=== PATIENT | female | born 1990 | race Caucasian/White ===

== ENCOUNTER 2025-05-14 18:25 | Emergency (ER) | payer MEDICAID, SELFPAY ==
[2025-05-14 18:28] VITALS: BP 125/88; PULSE 99; RESP 18; TEMP 36.4; O2SAT 100; BMI 19.1
--- NOTE | 2025-05-14 18:57 | EKG12_ITS ---
Test Reason : N/V Blood Pressure : */* mmHG Vent. Rate : 77 BPM Atrial Rate : 77 BPM P-R Int : 156 ms QRS Dur : 88 ms QT Int : 406 ms P-R-T Axes : 67 77 37 degrees QTcB Int : 459 ms Normal sinus rhythm Normal ECG Confirmed by Jovani Nelson ([id number]), editor publications NATHAN KOEHLER ([id number]) on 05/17/2025 11:49:41 AM Referred By: Confirmed By: Jovani Nelson
--- NOTE | 2025-05-14 18:58 | EX.ED.DYSGE1 ---
HPI History of Present Illness Chief Complaint: Nausea/Vomiting Informant: patient and spouse/S.O. Narrative Narrative: 6 vomiting multiple episodes 2 hours prior to arrival. States he feels like she is going to pass out. Issues previously however not severe per patient. Pursuing other recent known symptoms and ovarian cyst however denies any pelvic pain. Denies alcohol admits to marijuana use however states not much did use today small amount. Last menstrual period on the . No urinary symptoms. Multiple allergies reviewed. Prior similar symptoms: Yes PFSH PFSH Home Medications ?Medication ?Instructions ?Recorded ?Last Taken ?Type ondansetron 4 mg disintegrating 4 mg PO Q8H PRN PRN Nausea #10 tabs 05/14/25 Unknown Rx tablet Allergy/AdvReac Type Severity Reaction Status Date / Time amoxicillin Allergy Intermediate PT UNABLE Verified 05/14/25 18:28 TO RESPOND-NEEDS F/U acetaminophen (From Percocet) Allergy Mild PT UNABLE Verified 05/14/25 18:28 TO RESPOND-NEEDS F/U oxycodone (From Percocet) Allergy Mild PT UNABLE Verified 05/14/25 18:28 TO RESPOND-NEEDS F/U pseudoephedrine (From Allergy Mild PT UNABLE Verified 05/14/25 18:28 Sudafed) TO RESPOND-NEEDS F/U sulfamethoxazole (From Allergy PT UNABLE Verified 05/14/25 18:28 Bactrim) TO RESPOND-NEEDS F/U trimethoprim (From Bactrim) Allergy PT UNABLE Verified 05/14/25 18:28 TO RESPOND-NEEDS F/U Social History Smoking Status: Never smoker ROS ROS ED Constitutional Constitutional ED: Denies fever(s) Cardiovascular Cardiovascular: Reports other Details: Lightheaded symptoms ; Denies chest pain Respiratory/Chest Respiratory/Chest: Denies cough Gastrointestinal Gastrointestinal: Reports nausea and vomiting; Denies diarrhea Musculoskeletal Musculoskeletal: Denies none Integumentary Denies rash or wounds Neurologic Neurologic: Denies weakness EXAM Physical Exam Const Vital Signs: 05/14/25 18:28 05/14/25 20:20 Temperature 97.6 F L 98 F Temperature Source Temporal Pulse Rate 99 71 Respiratory Rate 18 18 Blood Pressure 125/88 H 113/78 Blood Pressure Mean 100 89 Pulse Ox 100 99 Oxygen Delivery Method Room Air Constitutional Narrative: Thin female actively retching during examination. No hematemesis. HEENT normocephalic and atraumatic Eyes General Eye ED: Yes normal appearance of both eyes Neck full ROM Resp normal respiratory effort and normal air movement Cardio regular rate and regular rhythm GI soft to palpation Extremity normal to inspection and full ROM Neuro oriented x3 Skin no rashes or lesions noted and no wounds MDM MDM MDM Narrative Medical decision making narrative: Interventions / MDM: Differential diagnosis: Cyclic vomiting, history of marijuana use, near syncope Diagnosis considered but do not suspect: No pelvic pain for concerns for torsion at this time reported history of ovarian cyst of 7 cm. My EKG interpretation: Sinus rate of 77, no ST changes. QTc 459. Imaging independently reviewed and interpreted by myself: N/A External documents reviewed: N/A Test considered but not ordered:N/A ED course: Patient retching in the room. Nontoxic soft abdomen. IV established for labs. Will use cyclic vomiting order set for medications Ativan Pepcid and Zofran. IV fluids given. EKG ordered with lightheaded symptoms. 2010: EKG normal labs are normal. Electrolytes lipase are normal. Clinically feeling better on reevaluation. Tolerate oral fluids. Prescription for Zofran at home to use. Discussed refraining from marijuana use. She is given follow-up with GI. She will continue oral fluid hydration at home. All questions were answered. Re-evaluation: stable Disposition discussed with patient/family/significant other: Patient and significant other Case discussed with consulting clinician: N/A This note was generated with [email or web address] dictation software. It may contain incorrect words, spelling, and punctuation that were not noted in checking the note before signing. Lab Data Attestation: I reviewed the patient's lab results. Labs: Laboratory Results - last 24 hr 05/14/25 19:10 WBC 11.3 H RBC 4.40 Hgb 13.4 Hct 39.0 MCV 88.6 MCH 30.5 MCHC 34.4 RDW Std Deviation 39.6 RDW Coeff of Elena 12.3 Plt Count 224 MPV 11.4 Immature Gran % (Auto) 0.400 Neut % (Auto) 85.1 H Lymph % (Auto) 10.3 L Scurry % (Auto) 3.7 Eos % (Auto) 0.3 Baso % (Auto) 0.2 Absolute Neuts (auto) 9.6 H Absolute Lymphs (auto) 1.16 Nucleated RBC % 0 Sodium 137 Potassium 3.8 Chloride 105 Carbon Dioxide 16.1 L Anion Gap 15 BUN 12 Creatinine 0.76 Estim Creat Clear Calc 79.90 Est GFR (MDRD) Non-Af 104 BUN/Creatinine Ratio 16.1 Glucose 151 H Calcium 9.2 Total Bilirubin 0.85 AST 24 ALT 26 Alkaline Phosphatase 82 Total Protein 7.5 Albumin 4.2 Globulin 3.2 Albumin/Globulin Ratio 1.3 Lipase 29 Serum , Qual NEGATIVE Discharge Plan Triage Chief Complaint: Nausea/Vomiting ED Provider: Casper Whittaker Dx/Rx/DC Orders Clinical Impression: Cyclic vomiting syndrome, Near syncope Instructions: ED Cyclic Vomiting Syndrome, ED Near-Fainting- Vagal Reaction Prescriptions: New ondansetron 4 mg tablet,disintegrating 4 mg PO Q8H PRN PRN (Reason: Nausea) Qty: 10 0RF Primary Care Provider: Care Physician,No Primary Referrals: Friend,Onesimo, DO [Med Staff - Active Staff] - 1-2 Weeks NOT,DEFINED [Non-Staff] - Activity Restrictions/Additional Instructions: EKG normal. Your abdominal labs were normal. Symptoms improved with medications. You Zofran as needed. Continue oral fluids for hydration. Follow-up with gastroenterology for further evaluation. Refrain from marijuana use as this can make symptoms worse. Print Language: Nauruan Disposition Disposition: Home, Self Care Discharge Date/Time: 05/14/25 20:21
--- NOTE | 2025-05-14 18:59 | PCA ---
no old ekg
[2025-05-14] MEDS: 0.9% Normal Saline (1000mL) 1,000 ML 1000 ML IV (19:18)
[2025-05-14] MEDS: Famotidine 200 MG/20 ML MDV 20 MG in 0.9% Normal Saline (Pres. free 8 ML 300 MG IV (19:18)
[2025-05-14] MEDS: Lorazepam 2 MG/ML WCH Syringe 0.5 MG IV (19:18)
[2025-05-14] MEDS: Ondansetron 4 MG/2 ML Vial IV (19:19)
[2025-05-14 19:26] LABS: Absolute Lymphocyte Count 1.16 X10^3/uL (0.83-4.51); Absolute Neutrophil Count 9.6 X10^3/uL (2.0-7.7); Basophil# 0.02 X10^3/uL; Basophil% 0.2 % (0-1); Eosinophil# 0.03 X10^3/uL; Eosinophils% 0.3 % (0-5); Hemoglobin 13.4 g/dL (12.0-15.0); Lymphocyte # 1.16 X10^3/ul (0.83-4.51); Lymphocyte % 10.3 % (19-41); Mean Corp Hgb Conc 34.4 g/dL (32-36); Mean Corpuscular Hgb 30.5 pg (27.0-32.0); Mean Corpuscular Volume 88.6 fL (81-99); Mean Platelet Vol. 11.4 fl (6.2-12.0); Monocyte# 0.42 X10^3/uL; Monocyte% 3.7 % (0-10); NRBC Flagged by Analyzer 0 % (0-5); Neutrophil # 9.62 X10^3/uL (2.7-7.7); Neutrophil % 85.1 % (47-70); Platelet Count 224 K/mm3 (150-450); RBC Distribution Width CV 12.3 % (11.6-14.6); RBC Distribution Width SD 39.6 fl (35.1-43.9); White Blood Count 11.3 K/mm3 (4.4-11.0)
[2025-05-14 19:47] LABS: Internal QC Validated? YES +Cl - CLEAR BKGD; Pregnancy, Serum, hCG Quali. NEGATIVE Negative; Record Kit Lot#, Serum Preg. 947241
[2025-05-14 19:50] LABS: ALB/GLOB Ratio 1.3 RATIO (0.9-2.4); AST(SGOT) 24 U/L (<=31); Alanine Aminotransfer ALT/SGPT 26 U/L (<=34); Albumin, Serum 4.2 g/dL (3.5-5.0); Alkaline Phosphatase 82 U/L (35-104); Anion Gap 15 (5-15); BUN 12 mg/dL (4-19); BUN/Creat Ratio 16.1 RATIO (10-20); Calcium,Total 9.2 mg/dL (7.6-11.0); Carbon Dioxide 16.1 mmol/L (21.0-32.0); Chloride 105 mmol/L (98-108); Creatinine, Serum 0.76 mg/dL (0.70-1.20); EST Glomerular Filtration Rate 104 (>60); Globulin 3.2 g/dL (2.2-4.2); Glucose 151 mg/dL (70-99); Lipase 29 U/L (13-75); Potassium 3.8 mmol/L (3.3-5.1); Protein, Total 7.5 g/dL (5.9-8.4); Sodium Level 137 mmol/L (133-145); Total Bilirubin 0.85 mg/dL (0.00-1.30)
[2025-05-14 20:20] VITALS: BP 113/78; PULSE 71; RESP 18; TEMP 36.6; O2SAT 99
== END 2025-05-14 20:21 | disposition home or self-care (01) ==
PROVIDERS: Emergency Provider Emergency Medicine; Visit Provider Emergency Medicine
DX: R11.15 Cyclical vomiting syndrome unrelated to migraine (principal); R55 Syncope and collapse
CPT/HCPCS: 80053; 83690; 84703; 85025; 93005; 96361; 96374; 96375; 99283; A4216; J2405